=== PATIENT | female | born 1980 | race Caucasian/White ===

== ENCOUNTER → 2017-06-24 | Outpatient (CLI) | payer BC | LOC: RAD 16:49 | DX: S61.452A Open bite of left hand, initial encounter (principal); W54.0XXA Bitten by dog, initial encounter ==

== ENCOUNTER 2018-03-19 17:10 | Emergency (ER) | payer BC ==
[2018-03-19 17:44] LABS: BASO # 0.1 (0.02-0.10); EOS # 0.4 (0.04-0.40); EOS % 3.7 % (1.0-5.0); HEMATOCRIT 45.2 % (37.0-47.0); HEMOGLOBIN 14.7 g/dL (12.5-16.0); LYMPH# 3.2 (1.50-4.00); MEAN CELL VOLUME 86 fl (78-100); MEAN CORPUSCULAR HEMOGLOBIN 28 pg (27-31); MEAN CORPUSCULAR HGB CONC 33 g/dL (33-37); MEAN PLATELET VOLUME 9.1 fl (7.4-10.4); MONO # 0.7 (0.20-0.80); NEU # 6.6 (1.40-6.50); PLATELET COUNT 352 K/mm3 (130-400); RED BLOOD COUNT 5.25 M/mm3 (4.10-5.30); RED CELL DISTRIBUTION WIDTH 13.5 % (11.5-14.5)
[2018-03-19] MEDS ORDERED: PAROXETINE HYDR40 MG PO (18:02)
[2018-03-19] MEDS ORDERED: HEATHER0.35 MG PO (18:02)
[2018-03-19] MEDS ORDERED: PAROXETINE HYDR10 MG PO (18:03)
[2018-03-19] MEDS ORDERED: ALPRAZOLAM0.25 MG PO (18:04)
[2018-03-19] MEDS ORDERED: GOOD NEIGHBOR200 M3 PO (18:04)
[2018-03-19] MEDS ORDERED: NATURE'S BLE1000 MCG (18:04)
[2018-03-19] MEDS ORDERED: ACETAMINOPHEN-H1 TA2 PO (18:04)
[2018-03-19] MEDS ORDERED: PREDNISONE10 MG PO (18:30)
[2018-03-19] MEDS ORDERED: ZITHROMAX 250M250 MG PO (18:30)
[2018-03-19 18:58] VITALS: BP 164/99
== END 2018-03-19 18:59 | disposition home or self-care (01) ==
LOC: ED 17:10
PROVIDERS: Nurse Practitioner Family
DX: J18.9 Pneumonia, unspecified organism (principal); J20.9 Acute bronchitis, unspecified; F17.210 Nicotine dependence, cigarettes, uncomplicated; Z79.899 Other long term (current) drug therapy
CPT/HCPCS: J1885; J7512

== ENCOUNTER → 2018-04-11 | Outpatient (CLI) | payer BC ==
[2018-03-19 18:58] VITALS: BP 164/99
[~2018-04-11] MED LIST: ACETAMINOPHEN-H1 TA2 PO; ALPRAZOLAM0.25 MG PO; GOOD NEIGHBOR200 M3 PO; HEATHER0.35 MG PO; NATURE'S BLE1000 MCG; PAROXETINE HYDR10 MG PO; PAROXETINE HYDR40 MG PO; PREDNISONE10 MG PO; ZITHROMAX 250M250 MG PO
== END ==
LOC: RAD 13:34
DX: R09.1 Pleurisy (principal); R07.81 Pleurodynia; R06.00 Dyspnea, unspecified; R06.02 Shortness of breath

== ENCOUNTER → 2018-04-13 | Outpatient (CLI) | payer BC ==
[2018-03-19 18:58] VITALS: BP 164/99
== END ==
LOC: MAMMO 12:48
DX: D48.62 Neoplasm of uncertain behavior of left breast (principal); N64.59 Other signs and symptoms in breast; N64.4 Mastodynia

== ENCOUNTER → 2018-10-12 | Outpatient (CLI) | payer BC | LOC: MAMMO 11:53 | DX: N63.20 Unspecified lump in the left breast, unspecified quadrant (principal) ==

== ENCOUNTER 2018-11-26 05:23 | Emergency (ER) | payer BC ==
[~2018-11-26] VITALS: Ht 157.5 cm; Wt 101.4 kg
[2018-11-26 06:24] LABS: EOS # 0.3 (0.04-0.40); EOS % 4.6 % (1.0-5.0); HEMATOCRIT 42.8 % (37.0-47.0); HEMOGLOBIN 13.9 g/dL (12.5-16.0); LYMPH# 2.1 (1.50-4.00); MEAN CELL VOLUME 85 fl (78-100); MEAN CORPUSCULAR HEMOGLOBIN 28 pg (27-31); MEAN CORPUSCULAR HGB CONC 33 g/dL (33-37); MEAN PLATELET VOLUME 9.5 fl (7.4-10.4); MONO # 0.8 (0.20-0.80); NEU # 4.1 (1.40-6.50); PLATELET COUNT 321 K/mm3 (130-400); RED BLOOD COUNT 5.06 M/mm3 (4.10-5.30); RED CELL DISTRIBUTION WIDTH 13.6 % (11.5-14.5); WHITE BLOOD COUNT 7.4 K/mm3 (4.8-10.8)
[2018-11-26 06:40] VITALS: BP 131/81
== END 2018-11-26 06:40 | disposition home or self-care (01) ==
LOC: ED 05:23
PROVIDERS: Family Medicine
DX: J02.9 Acute pharyngitis, unspecified (principal); F41.9 Anxiety disorder, unspecified; F32.9 Major depressive disorder, single episode, unspecified; F17.210 Nicotine dependence, cigarettes, uncomplicated

== ENCOUNTER 2019-08-05 04:14 | Inpatient (IN) | payer BC ==
[~2019-08-05] VITALS: Ht 157.5 cm; Wt 99.5 kg
[2019-08-05 05:01] LABS: EOS # 0.4 (0.04-0.40); EOS % 2.6 % (1.0-5.0); HEMATOCRIT 44.8 % (37.0-47.0); HEMOGLOBIN 14.4 g/dL (12.5-16.0); LYMPH# 2.7 (1.50-4.00); MEAN CELL VOLUME 86 fl (78-100); MEAN CORPUSCULAR HEMOGLOBIN 28 pg (27-31); MEAN CORPUSCULAR HGB CONC 32 g/dL (33-37); MEAN PLATELET VOLUME 9.5 fl (7.4-10.4); PLATELET COUNT 372 K/mm3 (130-400); RED BLOOD COUNT 5.24 M/mm3 (4.10-5.30); RED CELL DISTRIBUTION WIDTH 14.2 % (11.5-14.5); WHITE BLOOD COUNT 13.7 K/mm3 (4.8-10.8)
[2019-08-05 05:11] LABS: ALBUMIN 3.8 g/dL (3.5-5.0)
[2019-08-05 05:12] LABS: POTASSIUM 3.9 mmol/L (3.5-5.1); SODIUM 140 mmol/L (136-145)
[2019-08-05 05:13] LABS: CALCIUM 9.3 mg/dL (8.3-10.5); NEU # 9.6 (1.40-6.50)
[2019-08-05 05:14] LABS: GLUCOSE 135 mg/dL (65-105); TOTAL PROTEIN 6.8 g/dL (6.4-8.3)
[2019-08-05 05:15] LABS: CARBON DIOXIDE 23 mmol/L (22-29)
[2019-08-05 05:16] LABS: TOTAL BILIRUBIN 0.2 mg/dL (0.2-1.2)
[2019-08-05 05:19] LABS: AST-SGOT 15 U/L (5-34)
[2019-08-05 05:20] LABS: ALT/SGPT 17 U/L (0-55)
[2019-08-05 05:26] LABS: TROPONIN-I < 0.03 ng/mL (<0.030)
[2019-08-05 06:31] LABS: LIPASE 4380 U/L (8-78)
[2019-08-05 09:13] LABS: PH-URINE 5.5 (5.0 - 8.0); URINE APPEARANCE CLEAR; URINE BILIRUBIN NEGATIVE (NEGATIVE); URINE BLOOD TRACE (NEGATIVE); URINE COLOR YELLOW; URINE GLUCOSE NEGATIVE (NEGATIVE); URINE KETONE NEGATIVE (NEGATIVE); URINE LEUKOCYTE ESTERASE NEGATIVE (NEGATIVE); URINE NITRATE NEGATIVE (NEGATIVE); URINE PROTEIN(semi-quant) NEGATIVE (NEGATIVE); URINE UROBILINOGEN NORMAL (NORMAL)
[2019-08-05 09:24] VITALS: BP 139/94
--- NOTE | 2019-08-05 09:44 | NUR ---
REPORT GIVEN TO TERE BLOUNT. PATIENT RESTING IN ROOM WITH AT BEDSIDE. PATIENT IS AMBULATORY WITHOUT ASSIST BUT DOES HAVE IV FLUIDS INFUSING AND DEMONSTRATES UNDERSTANDING UP TO BATHROOM WITH POLE. PATIENT IS CALM AND PLEASANT. DENIES NAUSEA OR INCREASE PAIN AT THIS TIME. PATIENT STATES SHE IS GOING TO TRY TO SLEEP. NO FURTHER CONCERNS NOTED AT THIS TIME.
[2019-08-05 09:53] VITALS: BP 139/94
[2019-08-05 13:41] VITALS: BP 106/70
--- NOTE | 2019-08-05 13:50 | NUR ---
patient reports having a headache that started just now when waking up. eyes swollen. patient has reported several times to this nurse that she "just want to go to sleep i feel like i haven't slept in days" patient reports pain is a 5/10. requested pain medication for it. wants something less potent than fentanyl. called at this time. order for one time po tylenol.
[2019-08-05 16:50] VITALS: BP 109/62
[2019-08-05 17:19] LABS: EOS # 0.4 (0.04-0.40); EOS % 3.3 % (1.0-5.0); HEMATOCRIT 40.6 % (37.0-47.0); HEMOGLOBIN 12.8 g/dL (12.5-16.0); LYMPH# 2.2 (1.50-4.00); MEAN CELL VOLUME 86 fl (78-100); MEAN CORPUSCULAR HEMOGLOBIN 27 pg (27-31); MEAN CORPUSCULAR HGB CONC 32 g/dL (33-37); MEAN PLATELET VOLUME 9.4 fl (7.4-10.4); MONO # 0.7 (0.20-0.80); NEU # 7.7 (1.40-6.50); PLATELET COUNT 310 K/mm3 (130-400); RED BLOOD COUNT 4.72 M/mm3 (4.10-5.30); RED CELL DISTRIBUTION WIDTH 14.3 % (11.5-14.5); WHITE BLOOD COUNT 11.1 K/mm3 (4.8-10.8)
[2019-08-05 17:26] LABS: ALBUMIN 3.2 g/dL (3.5-5.0); POTASSIUM 4.3 mmol/L (3.5-5.1)
[2019-08-05 17:27] LABS: CALCIUM 8.4 mg/dL (8.3-10.5)
[2019-08-05 17:28] LABS: TOTAL PROTEIN 5.8 g/dL (6.4-8.3)
[2019-08-05 17:30] LABS: TOTAL BILIRUBIN 0.4 mg/dL (0.2-1.2)
--- NOTE | 2019-08-05 18:44 | NUR ---
report given to yokasta barron lpn
--- NOTE | 2019-08-05 19:07 | NUR ---
Report received from Edie CARRANZA. Sitting up in bed. A/O x4. IVF infusing NS at 125 ML/HR. Site patent to Brendon AC. Denies abdominal pain. Continues to have H/A 10/13. Offered and refused ice pack. Assessment completed. Up ad-mela in room. Calls when voids for staff to measure. Remains NPO with ice chips. Denies questions, wants or needs at this time.
--- NOTE | 2019-08-05 20:31 | NUR ---
Blood sugar 79. Reported to Dr. Levi.
--- NOTE | 2019-08-05 21:08 | NUR ---
Rings call light, States H/A is worse. 01/13. Reports that Tylenol did not help at all. Dr. Levi notified. Orders to give ordered Fentanyl 50 MCG.
[2019-08-05 21:12] VITALS: BP 115/76
--- NOTE | 2019-08-05 21:20 | NUR ---
Dr. Levi in to round on patient.
--- NOTE | 2019-08-06 00:05 | NUR ---
Rests with eyes closed. No signs of pain or distress.
--- NOTE | 2019-08-06 00:52 | NUR ---
Up to BR, voids 300 ML of yellow urine. Back to bed. States H/A is back, 12/13. Not wanting any IV Fentanyl, requests Ibuprofen. Dr. Levi notified. Awaiting orders.
[2019-08-06 01:07] VITALS: BP 107/63
--- NOTE | 2019-08-06 01:10 | NUR ---
Toradol 30 MG given SIVP.
[2019-08-06 05:44] VITALS: BP 115/74
--- NOTE | 2019-08-06 05:49 | NUR ---
Rested well. No abdominal pain. H/A 06/15 per report.
--- NOTE | 2019-08-06 06:53 | NUR ---
Report to Edie CARRANZA.
--- NOTE | 2019-08-06 07:15 | NUR ---
REPORT RECIEVED FROM JAZZ JACKSON LPN
[2019-08-06 07:50] LABS: EOS # 0.3 (0.04-0.40); EOS % 3.5 % (1.0-5.0); HEMATOCRIT 40.7 % (37.0-47.0); HEMOGLOBIN 12.9 g/dL (12.5-16.0); LYMPH# 1.9 (1.50-4.00); MEAN CELL VOLUME 87 fl (78-100); MEAN CORPUSCULAR HEMOGLOBIN 28 pg (27-31); MEAN CORPUSCULAR HGB CONC 32 g/dL (33-37); MEAN PLATELET VOLUME 9.2 fl (7.4-10.4); MONO # 0.4 (0.20-0.80); NEU # 5.4 (1.40-6.50); PLATELET COUNT 315 K/mm3 (130-400); RED BLOOD COUNT 4.69 M/mm3 (4.10-5.30); RED CELL DISTRIBUTION WIDTH 14.1 % (11.5-14.5)
[2019-08-06 08:07] LABS: ALBUMIN 3.3 g/dL (3.5-5.0); POTASSIUM 3.9 mmol/L (3.5-5.1)
[2019-08-06 08:09] LABS: CALCIUM 8.6 mg/dL (8.3-10.5)
[2019-08-06 08:10] LABS: TOTAL PROTEIN 6.1 g/dL (6.4-8.3)
[2019-08-06 08:12] LABS: TOTAL BILIRUBIN 0.4 mg/dL (0.2-1.2)
--- NOTE | 2019-08-06 08:30 | NUR ---
PATIENT REQUESTED TO ADVANCE DIET. ORDER FOR FULL LIQUID DIET. PATIENT ATE 90% ON FOOD ON TRAY. TOLERATED WELL. NO COMPLAINTS OF NAUSEA OR PAIN. PATIENT STATES "I FEEL GREAT I'M READY TO GO HOME" PROVIDER NOTIFIED.
--- NOTE | 2019-08-06 08:55 | NUR ---
DULCE HILTON [employer] B[employer]ER IN TO SEE PATIENT. PLAN IS FOR DISCHARGE THIS MORNING.
[2019-08-06 11:10] VITALS: BP 142/99
--- NOTE | 2019-08-06 11:15 | NUR ---
patient provided discharge instrusctions at this time. verbalized understanding of instructions. deny any questions for the nurse at this time. patient states "oh no i don't need a doctors note i'm going back to work tomorrow" when asked if this nurse needed to get a doctors note for work or if this nurse could ask the provider for a return date to work.
--- NOTE | 2019-08-06 11:17 | NUR ---
patient left facility ambulatory to pov at this time. accompanied by this nurse and patient's daughter. personal belongings and discharge paperwork sent with patient.
== END 2019-08-06 11:17 | disposition home or self-care (01) | DRG 440 ==
LOC: ED 04:14 → MED/SURG 09:15
PROVIDERS: ADMIT Family Medicine
DX: K85.90 Acute pancreatitis without necrosis or infection, unspecified (principal); F41.9 Anxiety disorder, unspecified; F32.9 Major depressive disorder, single episode, unspecified; F17.210 Nicotine dependence, cigarettes, uncomplicated
CPT/HCPCS: C9113; J1885; J1956; J2405; J3010; J3490; J7030; Q9967

== ENCOUNTER → 2019-08-07 | Outpatient (CLI) | payer BC ==
[2019-08-06 11:10] VITALS: BP 142/99
== END ==
LOC: LAB 10:43
DX: Z13.6 Encounter for screening for cardiovascular disorders (principal); K85.90 Acute pancreatitis without necrosis or infection, unspecified

== ENCOUNTER 2020-12-18 18:01 | Emergency (ER) | payer OTHER ==
[2020-12-18] MEDS ORDERED: ROSUVASTATIN CA20 MG PO (18:12)
[2020-12-18] MEDS ORDERED: METFORMIN ER500 MG PO (18:12)
[2020-12-18 19:36] LABS: BASO # 0.04 (0.02-0.10); EOS # 0.35 (0.04-0.40); EOS % 3.3 % (1.0-5.0); HEMATOCRIT 44.6 % (37.0-47.0); HEMOGLOBIN 14.6 g/dL (12.5-16.0); LYMPH# 2.06 (1.50-4.00); MEAN CELL VOLUME 85 fl (78-100); MEAN CORPUSCULAR HEMOGLOBIN 28 pg (27-31); MEAN CORPUSCULAR HGB CONC 33 g/dL (33-37); MEAN PLATELET VOLUME 9.8 fl (7.4-10.4); MONO # 0.51 (0.20-0.80); NEU # 7.75 (1.40-6.50); PLATELET COUNT 327 K/mm3 (130-400); RED BLOOD COUNT 5.28 M/mm3 (4.10-5.30); RED CELL DISTRIBUTION WIDTH 12.5 % (11.5-14.5); WHITE BLOOD COUNT 10.7 K/mm3 (4.8-10.8)
[2020-12-18 19:56] LABS: D-DIMER 0.67 mg/L FEU (0.15-0.50)
[2020-12-18 20:25] LABS: TROPONIN-I < 0.03 ng/mL (<0.030)
[2020-12-18 22:30] LABS: ALBUMIN 3.6 g/dL (3.5-5.0); CALCIUM 8.1 mg/dL (8.3-10.5); POTASSIUM 3.7 mmol/L (3.5-5.1); TOTAL BILIRUBIN 0.2 mg/dL (0.2-1.2); TOTAL PROTEIN 6.6 g/dL (6.4-8.3)
[2020-12-18 23:32] VITALS: BP 126/97
== END 2020-12-18 23:36 | disposition home or self-care (01) ==
LOC: ED 18:01
PROVIDERS: Nurse Practitioner
DX: F41.9 Anxiety disorder, unspecified (principal); I10 Essential (primary) hypertension; R91.1 Solitary pulmonary nodule; R79.1 Abnormal coagulation profile; F17.200 Nicotine dependence, unspecified, uncomplicated
CPT/HCPCS: Q9967

== ENCOUNTER → 2021-04-28 | Outpatient (CLI) | payer OTHER ==
[~2021-04-28] MED LIST changes: +METFORMIN ER500 MG PO; +ROSUVASTATIN CA20 MG PO
== END ==
LOC: LAB 17:21
DX: Z20.822 Contact with and (suspected) exposure to COVID-19 (principal)

== ENCOUNTER 2022-08-20 19:51 | Emergency (ER) | payer OTHER ==
[~2022-08-20] VITALS: Wt 90.9 kg
[2022-08-20] MEDS ORDERED: BUSPIRONE5 MG PO (20:07)
[2022-08-20] MEDS ORDERED: HYGROTON 2525 MG/TAB PO (20:07)
[2022-08-20] MEDS ORDERED: PREGABALIN200 MG PO (20:07)
[2022-08-20] MEDS ORDERED: VOLTAREN 75 DR75 MG PO (20:08)
[2022-08-20] MEDS ORDERED: DULOXETINE60 MG PO (20:08)
[2022-08-20] MEDS ORDERED: TRAMADOL 50 MG TAB PO (20:09)
[2022-08-20] MEDS ORDERED: PANTOPRAZOLE SO40 MG PO (20:09)
[2022-08-20] MEDS ORDERED: OZEMPIC0.25 MG/0. SQ (20:10)
[2022-08-20] MEDS ORDERED: WELLBUTRIN XL150 M2 PO (20:12)
[2022-08-20] MEDS ORDERED: DIPHENHYDRAMINE25 M8 PO (20:13)
[2022-08-20 20:37] LABS: BASO # 0.03 K/mm3 (0.02-0.10); EOS # 0.13 K/mm3 (0.04-0.40); HEMATOCRIT 42.1 % (37.0-47.0); HEMOGLOBIN 13.9 g/dL (12.5-16.0); LYMPH# 0.81 K/mm3 (1.50-4.00); MEAN CELL VOLUME 90 fl (78-100); MEAN CORPUSCULAR HEMOGLOBIN 30 pg (27-31); MEAN CORPUSCULAR HGB CONC 33 g/dL (33-37); MEAN PLATELET VOLUME 9.6 fl (7.4-10.4); MONO # 0.46 K/mm3 (0.20-0.80); NEU # 11.65 K/mm3 (1.40-6.50); PLATELET COUNT 283 K/mm3 (130-400); RED BLOOD COUNT 4.67 M/mm3 (4.10-5.30); RED CELL DISTRIBUTION WIDTH 12.9 % (11.5-14.5); WHITE BLOOD COUNT 13.1 K/mm3 (4.8-10.8)
[2022-08-20 20:42] LABS: ALBUMIN 3.9 g/dL (3.5-5.0); POTASSIUM 3.9 mmol/L (3.5-5.1)
[2022-08-20 20:44] LABS: CALCIUM 9.4 mg/dL (8.3-10.5)
[2022-08-20 20:45] LABS: TOTAL PROTEIN 6.8 g/dL (6.4-8.3)
[2022-08-20 21:24] LABS: TOTAL BILIRUBIN 0.3 mg/dL (0.2-1.2)
[2022-08-20] MEDS ORDERED: VIBRAMYCIN HYC100 MG PO (21:26)
[2022-08-20 21:40] VITALS: BP 114/76
[2022-08-20 21:58] LABS: URINE APPEARANCE HAZY; URINE BILIRUBIN NEGATIVE (NEGATIVE); URINE BLOOD TRACE (NEGATIVE); URINE COLOR YELLOW; URINE GLUCOSE NEGATIVE (NEGATIVE); URINE KETONE NEGATIVE (NEGATIVE); URINE LEUKOCYTE ESTERASE NEGATIVE (NEGATIVE); URINE NITRATE NEGATIVE (NEGATIVE); URINE PROTEIN(semi-quant) TRACE (NEGATIVE); URINE UROBILINOGEN NORMAL (NORMAL)
[2022-08-20 22:07] LABS: URINE WBC 0-1 /hpf (0-3)
== END 2022-08-20 21:40 | disposition home or self-care (01) ==
LOC: ED 19:51
PROVIDERS: Family Medicine
DX: A41.9 Sepsis, unspecified organism (principal); J06.9 Acute upper respiratory infection, unspecified; E66.9 Obesity, unspecified; F17.210 Nicotine dependence, cigarettes, uncomplicated; Z79.51 Long term (current) use of inhaled steroids
CPT/HCPCS: J0696; J7030

== ENCOUNTER → 2023-10-04 | Outpatient (CLI) | payer OTHER ==
[~2023-10-04] MED LIST changes: +BUSPIRONE5 MG PO; +DIPHENHYDRAMINE25 M8 PO; +DULOXETINE60 MG PO; +HYGROTON 2525 MG/TAB PO; +OZEMPIC0.25 MG/0. SQ; +PANTOPRAZOLE SO40 MG PO; +PREGABALIN200 MG PO; +TRAMADOL 50 MG TAB PO; +VIBRAMYCIN HYC100 MG PO; +VOLTAREN 75 DR75 MG PO; +WELLBUTRIN XL150 M2 PO
== END ==
LOC: RAD 07:48
DX: E04.1 Nontoxic single thyroid nodule (principal)

== ENCOUNTER 2024-01-04 08:00 | Outpatient (RCR) | payer OTHER | END 2024-01-04 18:00 | disposition still patient (30) | LOC: PT 08:00 | DX: Z98.890 Other specified postprocedural states (principal) ==

== ENCOUNTER 2024-01-06 13:17 | Outpatient (RCR) | payer OTHER | END 2024-02-04 | disposition home or self-care (01) | LOC: PT | DX: Z98.890 Other specified postprocedural states (principal) ==

== ENCOUNTER 2024-02-05 08:00 | Outpatient (RCR) | payer OTHER | END 2024-03-05 | disposition home or self-care (01) | LOC: PT | DX: Z98.890 Other specified postprocedural states (principal) ==

== ENCOUNTER → 2024-09-21 | Outpatient (CLI) | payer OTHER | LOC: RAD 11:22 | DX: R91.1 Solitary pulmonary nodule (principal) ==